=== PATIENT | male | born 1965 | race African-American/Black ===

== ENCOUNTER 2017-11-04 15:27 | Emergency (ER) | payer SELFPAY ==
[2017-11-04 16:57] LABS: AGAP ISTAT 17 mmol/L (6-14); BUN ISTAT 9 mg/dL (8-26); CHLORIDE ISTAT 102 mmol/L (98-110); CREATININE ISTAT 0.8 mg/dL (0.5-1.4); GLUCOSE ISTAT 90 mg/dL (70-99); HEMATOCRIT ISTAT 38 % (37-52); HEMOGLOBIN ISTAT 12.9 g/dL (14-18); ION CA ISTAT 1.22 mmol/L (1.13-1.32); POTASSIUM ISTAT 3.7 mmol/L (3.5-5.0); SODIUM ISTAT 140 mmol/L (135-145); TOT CO2 ISTAT 26 mmol/L (23-32)
== END 2017-11-04 17:35 | disposition home or self-care (01) ==
LOC: ER 15:27
DX: I10 Essential (primary) hypertension (principal); E66.9 Obesity, unspecified; Z88.0 Allergy status to penicillin; Z91.013 Allergy to seafood; Z68.34 Body mass index [BMI] 34.0-34.9, adult
CPT/HCPCS: 36415; 80047; 85014; 85018; 99283